=== PATIENT | male | born 1960 | race Caucasian/White ===

== ENCOUNTER 2018-09-08 07:34 | Day surgery (SDC) | payer BC ==
[2018-09-07 16:29] VITALS: BMI 35.9
[2018-09-08] MEDS ORDERED: BUPIVACAINE HCL/PF 0.5% (5MG/ML) 10 ML VIAL ONE (08:53)
[2018-09-08] MEDS ORDERED: LIDOCAINE HCL 1%, 10 MG/ML (20ML VIAL) ONE (08:53)
[2018-09-08] MEDS ORDERED: MIDAZOLAM HCL 2 MG/2 ML SINGLE DOSE VIAL ONE (09:04)
[2018-09-08] MEDS ORDERED: ceFAZolin SODIUM 1 GM VIAL ONE (09:05)
[2018-09-08] MEDS ORDERED: SODIUM CHLORIDE 0.9% P/F 10 ML VIAL IJ ONE (09:05)
--- NOTE | 2018-09-08 09:08 | HP ---
Satellite [facility] - Chief Complaint Chief Complaint: left hand mas History of Present Illness: left hand mass History Source: Patient Limitations to Obtaining History: No Limitations - Past Medical History Allergies/Adverse Reactions: Allergies Allergy/AdvReac Type Severity Reaction Status Date / Time No Known Allergies Allergy Verified 09/08/18 08:19 - Current Medications Current Medications: Home Medications Medication Instructions Recorded Alprazolam [Xanax] 0.5 mg PO BID 09/07/18 Amlodipine Besylate 5 mg PO DAILY 09/07/18 Aspirin [ASA -] 81 mg PO DAILY 09/07/18 Desloratadine/Pseudoephedrine 1 each PO DAILY 09/07/18 [Clarinex-D 12 Hour Tablet] Oxycodone HCl/Acetaminophen 1 each PO PRN 09/07/18 [Endocet 10-325 mg Tablet] Rabeprazole Sodium [Aciphex] 20 mg PO DAILY 09/07/18 Fluvoxamine Maleate [Luvox -] 50 mg PO DAILY 09/08/18 Satellite Physical Exam - Physical Examination Vital Signs: Vital Signs Period Temp Pulse Resp BP Sys/Todd Pulse Ox Last 24 Hr 98.4 F 65 18 146/66 97 General Appearance: Well Nourished ENT: Clear Lung: Clear to auscultation Heart: Regular rate & rhythm Breasts: Soft Abdomen: Soft Extremities: No edema Satellite Impression/Plan - Impression/Plan Impression: left hand mass, 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
[2018-09-08] MEDS ORDERED: LIDOCAINE HCL 1%, 10 MG/ML (20ML VIAL) INF ONE (09:35)
[2018-09-08] MEDS ORDERED: BUPIVACAINE HCL/PF 0.5% (5MG/ML) 10 ML VIAL IJ ONE (09:35)
--- NOTE | 2018-09-08 09:57 | OP ---
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
[2018-09-08 10:40] VITALS: BP 140/69; PULSE 59; TEMP 97.3
--- NOTE | 2018-09-08 13:43 | OP ---
DATE OF OPERATION: 09/08/2018 PREOPERATIVE DIAGNOSIS: Mass, left hand. POSTOPERATIVE DIAGNOSIS: Mass, left hand. PROCEDURE: Excision mass, left hand. SURGEON: Brianna Mccullough MD TOP AND TRIM WORKER: None. ANESTHESIOLOGIST: Nando Cruz MD ANESTHESIA: MAC anesthesia with local injection of 10 mL of 0.5% Marcaine with 1% lidocaine mixed. DRAINS: None. COMPLICATIONS: None. SPECIMENS: Mass, left hand. BLOOD LOSS: None. BLOOD GIVEN: None. FLUID REPLACEMENT: PlasmaLyte, 500 mL. INDICATIONS: This patient is a 58-year-old male with a preoperative diagnosis of a small, painful mass in the volar aspect of his left hand around the MP crease at the base of the middle finger. After understanding the potential risks, complications, alternatives, and benefits of surgery versus nonsurgical treatment, the patient elected to undergo this procedure. DESCRIPTION OF PROCEDURE: Patient was brought to the operating room. Peripheral IV was placed, and a very small amount of IV sedation was given. Left upper extremity was prepped and draped in sterile fashion. An oblique incision was marked out on the volar aspect over the middle finger proximal phalanx. Marcaine, 10 mL of 0.5%, and 1% lidocaine mix was injected in and around the surgical incision. The left upper extremity was then elevated and exsanguinated with an Esmarch bandage, and the tourniquet inflated to 270 mmHg. The entire case was done under 3.8 loupe magnification. Next, a No. 15 scalpel blade was utilized to cut through the skin. Subcutaneous hemostasis was achieved with the bipolar cautery. Blunt dissection was done with the curved small Littler scissors mid aspect of the volar middle finger proximal phalanx. Immediately apparent was a small spherical soft tissue mass. At one point, it popped, and classic ganglion cyst-like fluid was expressed. It was about 3 mm in diameter, well encapsulated, and looked completely benign. The small mass had a small stalk going to the volar aspect of the flexor tendon sheath. It seemed to actually form a small hole in the distal aspect of the A1 yrn sheath area. Therefore, this area was opened up with the No. 15 scalpel blade because is seemed to be frayed and irritated. There were no points of compression on the flexor tendon after this. The area was copiously irrigated and washed out, again, explored, and I could not see or feel any abnormal tissue. It was irrigated again. Then, 4-0 undyed Vicryl was used to close the deep dermal layer. Final skin reapproximation was done with a row of horizontal mattress and single interrupted 4-0 nylon sutures. The area was then washed and dried, covered with Xeroform gauze, 4x4 gauze, fluffs between the fingers, Webril, and Coban. The tourniquet was taken down after total tourniquet time of about 18 minutes. There were no complications during the case. The patient tolerated the procedure quite well and was brought to the ambulatory recovery room in stable condition. BRIANNA MCCULLOUGH M.D. [id number]
--- NOTE | 2018-09-09 16:44 | PATH ---
Surgical Pathology Report Patient Name: MARIAELENA TORREZ [facility]. Rec. #: [id number] /Age/Gender: 1960 (Age: 58) / M Account: [id number] Location: [facility] SURGICAL Taken: 09/08/2018 Received: 09/08/2018 Reported: 09/09/2018 Physicians: Josiah Berger M.D. Specimen(s) Received MASS FROM LEFT MIDDLE FINGER Clinical History Left middle finger mass Final Diagnosis MIDDLE FINGER, MASS, LEFT, EXCISION: GANGLION CYST. Electronically Signed Jacque Owens M.D. Gross Description Received in formalin labeled "mass from left middle finger," is a 0.8 x 0.6 x 0.3 cm austin soft tissue mass. The specimen is submitted in toto in one cassette. /09/08/201809/08/2018
== END 2018-09-08 10:50 | disposition home or self-care (01) ==
LOC: JASU-SURG 07:34
PROVIDERS: ATTEND Orthopaedic Surgery
PROC: 0LB80ZZ Excision of Left Hand Tendon, Open Approach (ICD-10-PCS; principal; 2018-09-08 09:00)
DX: M67.442 Ganglion, left hand (principal)
CPT/HCPCS: 88307-TC